=== PATIENT | male | born 1930 | race African-American/Black ===

== ENCOUNTER 2016-08-25 07:56 | Emergency (ER) | payer OTHER ==
[~2016-08-25] VITALS: Ht 170.2 cm; Wt 76.2 kg
--- NOTE | ~2016-08-25 | EKG ---
[place] [address] [employer] [facility] [employer] 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
[~2016-08-25 07:56] MED LIST: ACETAMINOPHEN650 M5 PO; ASPIRIN325; ASPIRIN325 PO; BYSTOLIC10 MG PO; CADUET 10 MG-81 EACH PO; COLACE100 MG PO; GLIPIZIDE ER10 MG PO; IMDUR 60 MG TAB60 M1 PO; LISINOPRIL20 MG PO; NITROGLYCERIN0.4 MG SL; ONE DAILY FOR1 EACH PO; PLAVIX 75 MG TA75 MG PO; TAMSULOSIN HCL0.4 MG PO; WELCHOL3.75 GM PO
[2016-08-25 08:40] LABS: ABSOLUTE NEUTROPHILS 7.3 thou/uL (1.4-8.2); BASOPHILS 1.1 % (0.0-2.0); HEMATOCRIT 37.5 % (42.0-52.0); HEMOGLOBIN 12.6 gm/dL (14.0-18.0); LYMPHOCYTES 20.4 % (24.0-44.0); MCH 31.1 pg (26.0-34.0); MCHC 33.6 g/dL (28.0-37.0); MCV 92.5 fL (80.0-100.0); MONOCYTES 9.2 % (1.0-8.0); PLATELET COUNT 207 thou/uL (150-400); POLYS 68.3 % (36.0-66.0); RBC 4.05 mil/uL (4.50-6.00); RDW 14.4 % (10.5-14.5); WBC 10.7 thou/uL (4.0-11.0)
[2016-08-25 08:43] LABS: MANUAL DIFF NO
[2016-08-25 08:51] LABS: ANION GAP 8 mmol/L (7-16); BUN 19 mg/dL (7-18); CALCIUM 8.7 mg/dL (8.5-10.1); CHLORIDE 108 mmol/L (98-107); CO2 25 mmol/L (21-32); CREATININE 1.4 mg/dL (0.7-1.3); GLUCOSE 107 mg/dL (74-106); SODIUM 141 mmol/L (136-145)
[2016-08-25 09:04] LABS: NT-PRO BRAIN NAT PEPTIDE 350 pg/mL (<300); TROPONIN-I < 0.04 ng/mL (<0.04-0.07)
[2016-08-25 10:11] LABS: URINE BILIRUBIN NEGATIVE (Negative); URINE BLOOD 2+ (Negative); URINE COLOR YELLOW; URINE GLUCOSE-RANDOM* NEGATIVE (Negative); URINE KETONES NEGATIVE (Negative); URINE LEUKOCYTES-REFLEX NEGATIVE (Negative); URINE PROTEIN (DIPSTICK) TRACE (Negative); URINE UROBILINOGEN 0.2 E.U./dl (0.2-1.0)
[2016-08-25 11:09] LABS: SQUAMOUS 0-3 Few /LPF (0-3)
[2016-08-25 11:10] LABS: CASTS None Seen /LPF (None Seen); CRYSTALS None Seen /LPF (None Seen); URINE RBC 3-10 Few /HPF (0-2); URINE WBC-REFLEX 0-5 Rare /HPF (0-5)
[2016-08-25 11:54] VITALS: BP 153/74
== END 2016-08-25 11:55 | disposition home or self-care (01) ==
LOC: ER 07:56
PROVIDERS: Emergency Medicine
DX: R07.89 Other chest pain (principal); R53.1 Weakness; I10 Essential (primary) hypertension; I25.10 Atherosclerotic heart disease of native coronary artery without angina pectoris; E78.00 Pure hypercholesterolemia, unspecified; F03.90 Unspecified dementia, unspecified severity, without behavioral disturbance, psychotic disturbance, mood disturbance, and anxiety; E11.9 Type 2 diabetes mellitus without complications; I73.9 Peripheral vascular disease, unspecified; Z95.5 Presence of coronary angioplasty implant and graft; Z87.891 Personal history of nicotine dependence

== ENCOUNTER 2017-07-11 14:48 | Emergency (ER) | payer OTHER ==
[~2017-07-11] VITALS: Ht 180.3 cm; Wt 78.9 kg
--- NOTE | ~2017-07-11 | EKG ---
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 07/12/17 1304 1559 1559 Lacho Nails MD, FACC /EPI
--- NOTE | ~2017-07-11 | EKG ---
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
[2017-07-11 16:34] LABS: HEMATOCRIT 41.8 % (42.0-52.0); HEMOGLOBIN 13.6 gm/dL (14.0-18.0); MCH 30.7 pg (26.0-34.0); MCHC 32.5 g/dL (28.0-37.0); MCV 94.7 fL (80.0-100.0); RBC 4.41 mil/uL (4.50-6.00); RDW 14.9 % (10.5-14.5); WBC 8.7 thou/uL (4.0-11.0)
[2017-07-11 16:45] LABS: ANION GAP 11 mmol/L (7-16); BUN 21 mg/dL (7-18); CALCIUM 8.8 mg/dL (8.5-10.1); CHLORIDE 106 mmol/L (98-107); CO2 21 mmol/L (21-32); CREATININE 1.5 mg/dL (0.7-1.3); GLUCOSE 123 mg/dL (74-106); POTASSIUM 5.4 mmol/L (3.5-5.1); SODIUM 138 mmol/L (136-145)
[2017-07-11 16:54] LABS: ABSOLUTE NEUTROPHILS 6.4 thou/uL (1.4-8.2); TROPONIN-I < 0.04 ng/mL (<0.06)
[2017-07-11 16:56] LABS: BURR CELLS 1+; LARGE PLATELETS RARE; PLATELET COUNT 93 thou/uL (150-400)
[2017-07-11] MEDS ORDERED: TESSALON PERLE100 MG PO (17:27)
[2017-07-11] MEDS ORDERED: DOXYCYCLINE 10100 MG PO (17:27)
== END 2017-07-11 17:40 | disposition home or self-care (01) ==
LOC: ER 14:48
PROVIDERS: Physician Assistant
DX: R05 Cough (principal); R09.81 Nasal congestion; I10 Essential (primary) hypertension; E78.00 Pure hypercholesterolemia, unspecified; E11.9 Type 2 diabetes mellitus without complications; I25.10 Atherosclerotic heart disease of native coronary artery without angina pectoris; Z87.891 Personal history of nicotine dependence

== ENCOUNTER 2017-10-12 10:13 | Emergency (ER) | payer OTHER ==
[~2017-10-12] VITALS: Ht 180.3 cm; Wt 59.0 kg
[~2017-10-12 10:13] MED LIST changes: +DOXYCYCLINE 10100 MG PO; +TESSALON PERLE100 MG PO
[2017-10-12 11:07] LABS: URINE BILIRUBIN NEGATIVE (Negative); URINE BLOOD 2+ (Negative); URINE CLARITY CLEAR; URINE COLOR YELLOW; URINE GLUCOSE-RANDOM* NEGATIVE (Negative); URINE KETONES NEGATIVE (Negative); URINE LEUKOCYTES-REFLEX NEGATIVE (Negative); URINE NITRITE-REFLEX NEGATIVE (Negative); URINE PROTEIN (DIPSTICK) NEGATIVE (Negative); URINE SPECIFIC GRAVITY 1.025 (1.005-1.035); URINE UROBILINOGEN 0.2 E.U./dl (0.2-1.0)
[2017-10-12 11:16] LABS: BACTERIA-REFLEX 1-9 Few /HPF (None Seen); CASTS None Seen /LPF (None Seen); CRYSTALS None Seen /LPF (None Seen); SQUAMOUS None Seen /LPF (0-3); URINE RBC 0-2 Rare /HPF (0-2); URINE WBC-REFLEX None Seen /HPF (0-5)
[2017-10-12 11:57] VITALS: BP 145/65
== END 2017-10-12 11:59 | disposition home or self-care (01) ==
LOC: ER 10:13
PROVIDERS: Emergency Medicine
DX: R30.0 Dysuria (principal); R20.2 Paresthesia of skin; I10 Essential (primary) hypertension; I25.10 Atherosclerotic heart disease of native coronary artery without angina pectoris; E78.00 Pure hypercholesterolemia, unspecified; E11.9 Type 2 diabetes mellitus without complications; F17.210 Nicotine dependence, cigarettes, uncomplicated; Z95.5 Presence of coronary angioplasty implant and graft

== ENCOUNTER 2018-08-06 10:27 | Emergency (ER) | payer OTHER ==
[~2018-08-06] VITALS: Ht 175.3 cm; Wt 77.1 kg
[2018-08-06 11:06] LABS: ABSOLUTE NEUTROPHILS 5.7 thou/uL (1.4-8.2); BASOPHILS 0.7 % (0.0-2.0); HEMATOCRIT 40.8 % (42.0-52.0); HEMOGLOBIN 13.5 gm/dL (14.0-18.0); LYMPHOCYTES 28.8 % (24.0-44.0); MCHC 33.1 g/dL (28.0-37.0); MCV 96.7 fL (80.0-100.0); MONOCYTES 6.6 % (1.0-8.0); PLATELET COUNT 149 thou/uL (150-400); POLYS 62.9 % (36.0-66.0); RBC 4.22 mil/uL (4.50-6.00); RDW 14.5 % (10.5-14.5); WBC 9.1 thou/uL (4.0-11.0)
[2018-08-06] MEDS ORDERED: NAMENDA 10 MG T10 MG PO (11:06)
[2018-08-06] MEDS ORDERED: GLIPIZIDE ER5 MG PO (11:06)
[2018-08-06] MEDS ORDERED: FINASTERIDE5 MG PO (11:07)
[2018-08-06] MEDS ORDERED: LIPITOR80 MG PO (11:07)
[2018-08-06] MEDS ORDERED: BYSTOLIC 5 MG5 M1 PO (11:08)
[2018-08-06] MEDS ORDERED: MOBIC7.5 MG PO (11:09)
[2018-08-06] MEDS ORDERED: ASPIR 8181 MG PO (11:09)
[2018-08-06] MEDS ORDERED: AMLODIPINE BESY10 MG PO (11:09)
[2018-08-06] MEDS ORDERED: RAZADYNE4 MG PO (11:11)
[2018-08-06 11:14] LABS: CALCIUM 9.2 mg/dL (8.5-10.1); CREATININE 1.8 mg/dL (0.7-1.3); POTASSIUM 3.7 mmol/L (3.5-5.1)
[2018-08-06 11:20] LABS: ALBUMIN 3.5 g/dL (3.4-5.0); TOTAL BILIRUBIN 0.4 mg/dL (<0.1-1.0); TOTAL PROTEIN 7.1 g/dL (6.4-8.2)
[2018-08-06 11:37] LABS: URINE BILIRUBIN NEGATIVE (Negative); URINE BLOOD 3+ (Negative); URINE CLARITY CLEAR; URINE COLOR YELLOW; URINE GLUCOSE-RANDOM* NEGATIVE (Negative); URINE KETONES TRACE (Negative); URINE LEUKOCYTES NEGATIVE (Negative); URINE NITRITE NEGATIVE (Negative); URINE PROTEIN (DIPSTICK) TRACE (Negative); URINE SPECIFIC GRAVITY >= 1.030 (1.005-1.035); URINE UROBILINOGEN 0.2 E.U./dl (0.2-1.0)
[2018-08-06 11:46] LABS: HYALINE CASTS 0-3 Few /LPF (None Seen); MUCUS >6 Heavy strn/LPF (None Seen); SQUAMOUS 4-10 Moderate /LPF (0-3)
[2018-08-06 11:47] LABS: URINE RBC 3-10 Few /HPF (0-2); URINE WBC 0-5 Rare /HPF (0-5)
[2018-08-06 11:48] LABS: BACTERIA None Seen /HPF (None Seen); CRYSTALS None Seen /LPF (None Seen)
[2018-08-06 13:44] VITALS: BP 120/58
== END 2018-08-06 13:47 | disposition home or self-care (01) ==
LOC: ER 10:27
PROVIDERS: Physician Assistant
DX: R31.9 Hematuria, unspecified (principal); M54.5 Low back pain; I10 Essential (primary) hypertension; I25.10 Atherosclerotic heart disease of native coronary artery without angina pectoris; E78.00 Pure hypercholesterolemia, unspecified; F03.90 Unspecified dementia, unspecified severity, without behavioral disturbance, psychotic disturbance, mood disturbance, and anxiety; E11.9 Type 2 diabetes mellitus without complications; I73.9 Peripheral vascular disease, unspecified; Z95.5 Presence of coronary angioplasty implant and graft; Z87.891 Personal history of nicotine dependence